=== PATIENT | female | born 1970 | race Caucasian/White ===

== ENCOUNTER → 2017-07-24 16:40 | Outpatient (CLI) | payer BC, SELFPAY ==
[2017-07-24 19:31] LABS: Thyroid Stimulating Hormone 2.41 uIU/ml (0.358-3.740)
== END ==
PROVIDERS: Family Provider Family Medicine; PCP Family Medicine; Visit Provider Obstetrics & Gynecology
DX: R68.82 Decreased libido (principal)
CPT/HCPCS: 84443

== ENCOUNTER → 2017-08-20 09:40 | Outpatient (POV) | payer BC, SELFPAY | PROVIDERS: Visit Provider Physician Assistant | DX: Z00.00 Encounter for general adult medical examination without abnormal findings (principal) ==

== ENCOUNTER → 2017-11-20 08:31 | Outpatient (CLI) | payer BC, SELFPAY ==
--- NOTE | 2017-11-20 08:34 | MM_ITS ---
MM Dig screening mamm BI w/CAD CAD Screening COMPARISON: Digital mammograms 11/16/2016 and 11/15/2015 INDICATION: There is no personal or family history of breast cancer. The patient had a melanoma removed from the left breast near the nipple. TECHNIQUE: Standard CC and MLO images were obtained. R2 CAD reviewed. FINDINGS: Scattered fiber glandular densities are seen in both breast. There is no suspicious lesion in either breast and no suspicious microcalcifications. IMPRESSION: Fibrofatty parenchyma no suspicious lesion seen BI-RADS Category: 2 Benign Finding(s) RECOMMENDED FOLLOW-UP: 1YR - 1 YEAR FOLLOW-UP (A letter has been sent to the patient regarding results of the study.)
== END ==
PROVIDERS: Family Provider Family Medicine; PCP Family Medicine; Visit Provider Obstetrics & Gynecology
DX: Z12.31 Encounter for screening mammogram for malignant neoplasm of breast (principal)
CPT/HCPCS: 77067

== ENCOUNTER → 2018-06-05 14:33 | Outpatient (CLI) | payer BC, SELFPAY ==
--- NOTE | 2018-06-05 14:36 | MR_ITS ---
MR cervical spine wo con, MR 3-d myelogram/MRCP HISTORY: LT arm pain. Numbness and tingling when waking. Unable to raise LT arm. [id number]. No trauma. No HX neck surgery. ITS.REASON: DISORDER OF NECK, CERVICAL RADICULOPATHY ORDERING PHYSICIAN: Aneesh Salas MD PATIENT AGE: 48 years Comparison: CT 09-15-16 TECHNIQUE: Standard multiplanar multiecho sequences are performed without contrast. 3-D MIP and myelographic images are also rendered and reviewed FINDINGS: There is normal alignment. The craniocervical junction has an unremarkable appearance. C2-C3, C3-C4, C4-C5 have an unremarkable appearance. C5-C6: There is minimal concentric bulging disc without impingement. C6-C7: Mild concentric bulging disc with a small broad-based disc protrusion which is slightly eccentric toward the left.. There is narrowing of the canal at 10 mm. No cord flattening or cord impingement. No foraminal narrowing evident. C7-T1 is unremarkable. No extruded herniated disc is evident. IMPRESSION: 1. Minimal bulging disc at C5-C6. 2. Mild concentric bulging disc at C6-C7 with a small broad-based central disc protrusion which is slightly eccentric toward the left.. There is narrowing of the canal at 10 mm. No cord flattening or cord impingement. No foraminal narrowing evident 3. No extruded herniated disc evident
== END ==
PROVIDERS: PCP Family Medicine; Visit Provider Family Medicine
DX: M53.82 Other specified dorsopathies, cervical region (principal); M54.12 Radiculopathy, cervical region
CPT/HCPCS: 72141; 76376

== ENCOUNTER → 2018-06-24 09:34 | Outpatient (POV) | payer BC, SELFPAY ==
[2018-06-24 09:43] VITALS: BP 166/95; PULSE 82; RESP 18; O2SAT 99
--- NOTE | 2018-06-24 11:18 | HMH.PMCON ---
Assessment and Plan (1) Degenerative disc disease Current visit: Yes Status: Chronic Qualifiers: Spinal region: mid-cervical Category: Medical (2) Cervical radiculopathy Current visit: Yes Status: Chronic Category: Medical Code(s): M54.12 - Radiculopathy, cervical region - Assessment and plan all Dx Assessment and Plan for all problems:: We will schedule a C5-C6 cervical epidural steroid injection for the patient. I believe it would be beneficial given her symptomology. Patient is not on any anticoagulation therapy. He is continuing her home stretching program. I will follow-up with her after the injection. This note was dictated using voice recognition software and may contain errors or omissions HPI - Data of Consult Consult date: 06/24/18 Requesting Physician: Debra Early APRN Primary Care Provider: Aneesh Salas MD - Consult Narrative Reason for consult: Neck pain History of present illness: Ms. Gonzalez is a 48 year old female who presents today for consultation in regards to her neck pain. Patient states lifting and moving increases her pain will a TENS unit, ice, heat helps decrease it. She is also now experiencing the left arm numbness and tingling. Patient has completed chiropractic therapy. Patient states that this did not help very much. She is also continuing a home stretching part regimen. Patient is currently on anti-inflammatories and gabapentin with not much relief. She rates her pain a 5 out of 10. She states the pain is causing it hard to be functional. Patient has an MRI showing degenerative changes in her C-spine. CC: Debra Early APRN [facility] History I have reviewed the patient's past medical history: Yes Other Surgeries: Yes: No Previous Surgery, Hysterectomy-Total Amputation: No Fractures: No - *Social History Smoking Status: Never smoker Tobacco Type: cigarettes # Packs/Day (cigarettes): 0 #Yrs smoked (if former smoker): 3 Alcohol Intake: never Alcohol Intake Frequency:: other Substance Use Type: denies use Occupational Status: employed Housing: house Household Members: spouse - Psychiatric History Expresses thoughts of harming self/others: None Suicide Plan Description: No Plan *Family Hx:: Cancer, Diabetes DECK ENGINEER history: No DECK ENGINEER history Review of Systems - Review of Systems ROS General: no recent weight change, no fever, no sleep disturbances Respiratory: no cough, no shortness of air, no recurring pulmonary infections Cardiovascular/Peripheral Vascular: No chest pain, No palpitations, no edema, no shortness of breath. Gastrointestinal: no incontinence, normal bowel movements reported Genitourinary: no incontinence Musculoskeletal: Neck pain, arm pain Psychiatric: normal mood/ affect Neurological: [denies weakness in extremities], [denies balance issues] Meds Home Medications Medication Instructions Recorded Confirmed Type estradiol 2 mg tablet 2 mg PO QDAY 07/03/17 History estradiol 2 mg tablet 2 mg PO ONCE #30 tab 11/12/17 Rx Allergies Allergy/AdvReac Type Severity Reaction Status Date / Time No Known Allergies Allergy Unverified 10/03/17 11:12 Objective Vital signs: Pulse Resp BP Pulse Ox 82 18 166/95 H 99 06/24/18 09:43 06/24/18 09:43 06/24/18 09:43 06/24/18 09:43 Narrative: Physical Exam General: Alert and oriented x3, no acute distress, pleasant and cooperative, [on room air] Lungs: Resps E/U, Symmetrical chest expansion, Eyes: PERRL Musculoskeletal: Flexion and extension of cervical spine somewhat guarded secondary to pain, deep tendon reflexes normal, strength in upper and lower extremities [5/5], normal gait noted Neurological: speech clear, waiter/waitress buffet equal, no gross sensory deficits Opioid Risk Tool - Opioid Risk Tool-Female Family hx alcohol abuse: N Family hx illegal drugs: N Family hx rx drug abuse: N Personal hx alcohol abuse: N Pers
--- NOTE | 2018-06-24 11:21 | P.CONS_ITS ---
Assessment and Plan (1) Degenerative disc disease Current visit: Yes Status: Chronic Qualifiers: Spinal region: mid-cervical Category: Medical (2) Cervical radiculopathy Current visit: Yes Status: Chronic Category: Medical Code(s): M54.12 - Radiculopathy, cervical region - Assessment and plan all Dx Assessment and Plan for all problems:: We will schedule a C5-C6 cervical epidural steroid injection for the patient. I believe it would be beneficial given her symptomology. Patient is not on any anticoagulation therapy. He is continuing her home stretching program. I will follow-up with her after the injection. This note was dictated using voice recognition software and may contain errors or omissions HPI - Data of Consult Consult date: 06/24/18 Requesting Physician: Debra Early APRN Primary Care Provider: Aneesh Salas MD - Consult Narrative Reason for consult: Neck pain History of present illness: Ms. Gonzalez is a 48 year old female who presents today for consultation in regards to her neck pain. Patient states lifting and moving increases her pain will a TENS unit, ice, heat helps decrease it. She is also now experiencing the left arm numbness and tingling. Patient has completed chiropractic therapy. Patient states that this did not help very much. She is also continuing a home stretching part regimen. Patient is currently on anti-inflammatories and gabapentin with not much relief. She rates her pain a 5 out of 10. She states the pain is causing it hard to be functional. Patient has an MRI showing degenerative changes in her C-spine. CC: eDbra Early APRN [facility] History I have reviewed the patient's past medical history: Yes Other Surgeries: Yes: No Previous Surgery, Hysterectomy-Total Amputation: No Fractures: No - *Social History Smoking Status: Never smoker Tobacco Type: cigarettes # Packs/Day (cigarettes): 0 #Yrs smoked (if former smoker): 3 Alcohol Intake: never Alcohol Intake Frequency:: other Substance Use Type: denies use Occupational Status: employed Housing: house Household Members: spouse - Psychiatric History Expresses thoughts of harming self/others: None Suicide Plan Description: No Plan *Family Hx:: Cancer, Diabetes LAND CHECKER history: No LAND CHECKER history Review of Systems - Review of Systems ROS General: no recent weight change, no fever, no sleep disturbances Respiratory: no cough, no shortness of air, no recurring pulmonary infections Cardiovascular/Peripheral Vascular: No chest pain, No palpitations, no edema, no shortness of breath. Gastrointestinal: no incontinence, normal bowel movements reported Genitourinary: no incontinence Musculoskeletal: Neck pain, arm pain Psychiatric: normal mood/ affect Neurological: [denies weakness in extremities], [denies balance issues] Meds Home Medications Medication Instructions Recorded Confirmed Type estradiol 2 mg tablet 2 mg PO QDAY 07/03/17 History estradiol 2 mg tablet 2 mg PO ONCE #30 tab 11/12/17 Rx Allergies Allergy/AdvReac Type Severity Reaction Status Date / Time No Known Allergies Allergy Unverified 10/03/17 11:12 Objective Vital signs: Pulse Resp BP Pulse Ox 82 18 166/95 H 99 06/24/18 09:43 06/24/18 09:4
== END ==
PROVIDERS: PCP Family Medicine; Visit Provider Clinical Nurse Specialist Family Health
DX: M50.10 Cervical disc disorder with radiculopathy, unspecified cervical region (principal)
CPT/HCPCS: 99202

== ENCOUNTER → 2018-07-15 09:20 | Outpatient (POV) | payer BC, SELFPAY ==
[2018-07-15 09:31] VITALS: BP 141/77; PULSE 81; RESP 18; O2SAT 98; BMI 31.1
--- NOTE | 2018-07-15 09:34 | HMH.PAINSOAP ---
[facility] Pain Management SOAP Note Subjective:: Patient is a pleasant 48-year-old white female who presents today for follow-up after cervical epidural steroid injection. Patient did not get any relief from her cervical epidural. Patient is having pain in her left shoulder only certain movements evoked pain. She still has strength in that extremity. Patient does have some radiation of pain into her upper arm. She rates her pain a 7 out of 10 today. Patient has not had any imaging of her shoulder we will send her for an x-ray today and potentially an MRI. I want to rule out nerve impingement within her shoulder. Patient's tried and failed physical therapy and is continuing home stretching exercises she is on anti-inflammatories. Patient is tried gabapentin with no relief. ROS General: no recent weight change, no fever, no sleep disturbances Respiratory: no cough, no shortness of air, no recurring pulmonary infections Cardiovascular/Peripheral Vascular: No chest pain, No palpitations, no edema, no shortness of breath. Gastrointestinal: no incontinence, normal bowel movements reported Genitourinary: no incontinence Musculoskeletal: Shoulder pain left arm pain Psychiatric: normal mood/ affect Neurological: [denies weakness in extremities], [denies balance issues] Objective:: Physical Exam General: Alert and oriented x3, no acute distress, pleasant and cooperative, [on room air] Lungs: Resps E/U, Symmetrical chest expansion, Eyes: PERRL Musculoskeletal: Flexion and extension of cervical spine somewhat guarded secondary to pain, deep tendon reflexes normal, strength in upper and lower extremities [5/5], slightly antalgic gait noted Neurological: speech clear, night shift manager equal, no gross sensory deficits Assessment:: Degenerative disc disease cervical spine, left shoulder pain, left arm pain Plan:: We will get an x-ray of the left shoulder and review it. Patient may need an MRI to determine pathology. I will follow-up with the patient after diagnostic imaging. This note was dictated using voice recognition software and may contain errors or omissions
--- NOTE | 2018-07-15 09:37 | P.CONS_ITS ---
[facility] Pain Management SOAP Note Subjective:: Patient is a pleasant 48-year-old white female who presents today for follow-up after cervical epidural steroid injection. Patient did not get any relief from her cervical epidural. Patient is having pain in her left shoulder only certain movements evoked pain. She still has strength in that extremity. Patient does have some radiation of pain into her upper arm. She rates her pain a 7 out of 10 today. Patient has not had any imaging of her shoulder we will send her for an x-ray today and potentially an MRI. I want to rule out nerve impingement within her shoulder. Patient's tried and failed physical therapy and is continuing home stretching exercises she is on anti-inflammatories. Patient is tried gabapentin with no relief. ROS General: no recent weight change, no fever, no sleep disturbances Respiratory: no cough, no shortness of air, no recurring pulmonary infections Cardiovascular/Peripheral Vascular: No chest pain, No palpitations, no edema, no shortness of breath. Gastrointestinal: no incontinence, normal bowel movements reported Genitourinary: no incontinence Musculoskeletal: Shoulder pain left arm pain Psychiatric: normal mood/ affect Neurological: [denies weakness in extremities], [denies balance issues] Objective:: Physical Exam General: Alert and oriented x3, no acute distress, pleasant and cooperative, [on room air] Lungs: Resps E/U, Symmetrical chest expansion, Eyes: PERRL Musculoskeletal: Flexion and extension of cervical spine somewhat guarded secondary to pain, deep tendon reflexes normal, strength in upper and lower extremities [5/5], slightly antalgic gait noted Neurological: speech clear, branch billing payroll clerk equal, no gross sensory deficits Assessment:: Degenerative disc disease cervical spine, left shoulder pain, left arm pain Plan:: We will get an x-ray of the left shoulder and review it. Patient may need an MRI to determine pathology. I will follow-up with the patient after diagnostic imaging. This note was dictated using voice recognition software and may contain errors or omissions
--- NOTE | 2018-07-15 09:43 | XR_ITS ---
XR shoulder LT min 2V HISTORY: ITS.REASON: LT SHOULDER PAIN ORDERING PHYSICIAN: Debra Early PATIENT AGE: 48 years Comparison: None FINDINGS: No fracture or dislocation. No lytic or blastic change. There is normal mineralization. The joint spaces are well-preserved. No significant degenerative/arthritic changes. No erosive changes evident. IMPRESSION: Negative, no acute finding
== END ==
PROVIDERS: PCP Family Medicine; Visit Provider Clinical Nurse Specialist Family Health
DX: M50.30 Other cervical disc degeneration, unspecified cervical region (principal); M25.512 Pain in left shoulder; M79.602 Pain in left arm
CPT/HCPCS: 73030; 99213

== ENCOUNTER → 2018-07-19 12:51 | Outpatient (CLI) | payer BC, SELFPAY ==
--- NOTE | 2018-07-19 12:54 | MR_ITS ---
MR shoulder LT wo con Ordering Physician: Debra Early Patient Age: 48 years: Female HISTORY: ITS..: LEFT SHOULDER PAIN Left shoulder and arm pain since January 2018. Limited range of motion with raising arm appearing behind back. No known injury. TECHNIQUE: Multiplanar multisequence imaging on 1.5 Yina MRI. COMPARISON :Left shoulder radiograph 07/15/2018 Also the negative appearing CT C-spine from August 2006 noted FINDINGS. Moderate Joint effusion at the shoulder joint. The glenohumeral joint the joint space appears to be maintained, with anterior & posterior labrum intact. Initially question possible slight signal undercutting of towards the inferior labrum but overall I believe this area is intact.... Superior labrum appears intact Joint fluid/fluid joint effusion extends along the biceps tendon sheath. The biceps tendon itself appears to demonstrate slight grade signal, increased signal & thinning as it passes just above the bicipital groove and over humeral head.. This appearance Suspect for biceps tendinopathy but may be exaggerated by magic angle artifact. Requires correlation.. Also note some minor nonspecific increased signal/edema towards anterior interval just anterior to this region possibly related to the joint effusion. There is a [id number] AC joint arthropathy, hypertrophy spurring most evident superiorly at AC joint. There is downward sloping of the acromion on coronal images.- With this the subacromial space narrows to 4.5 mm beneath the tip of the acromion. - Just beneath the tip of acromion there is mild thickening & slight increased signal within the supraspinatus tendon suggestive of supraspinatus tendinopathy. No full-thickness tear there could be some minor disruption of all along the distal surface but no full-thickness supraspinatus tear.. No significant increase fluid at subdeltoid subacromial bursa.. . infraspinatus tendon appears intact. Subscapularis tendon I overall intact with perhaps some scant increased signal in scant tendinopathy. -----IMPRESSION Supraspinatus tendinopathy.- Mild Thickening with increased signal at supraspinatus tendon, most notable towards bursal surface. Possible very minor irregularity/tear at the bursal surface, but no full-thickness rotator cuff tear.. Downward sloping at tip of acromion on coronal views-which slightly narrows the subacromial space.. This anatomy may contribute to impingement symptoms & the supraspinatus tendinopathy. Mild/moderate AC joint arthropathy,. Joint effusion. ( However no fluid at subdeltoid subacromial bursa-This speaks against full-thickness RCT as well) Suggestion of scant, Minimal subscapularis tendinopathy. Suspect biceps tendinopathy.. Suggestion of thinning & increased signal at the biceps tendon just above the bicipital groove. Correlation with symptoms required
== END ==
PROVIDERS: PCP Family Medicine; Visit Provider Clinical Nurse Specialist Family Health
DX: M25.512 Pain in left shoulder (principal)
CPT/HCPCS: 73221

== ENCOUNTER → 2018-07-23 09:03 | Outpatient (POV) | payer BC, SELFPAY ==
[2018-07-23 09:43] VITALS: BP 148/84; PULSE 75; RESP 18; O2SAT 98; BMI 31.1
--- NOTE | 2018-07-23 09:44 | HMH.PAINSOAP ---
[facility] Pain Management SOAP Note Subjective:: Patient is a pleasant 48-year-old white female who presents today to discuss her MRI of her left shoulder. Patient states her neck pain is virtually gone the most of her pain is in her left shoulder. She is having 7 out of 10 pain in that area. Patient has minor irregularities in the bursal surface along with a downward sloping acromion potentially contributing to impingement symptoms and supraspinatus tendinopathy. She also has moderate AC joint arthropathy. Patient states that the pain travels into her bicep at times. She has pain with range of motion. ROS General: no recent weight change, no fever, no sleep disturbances Respiratory: no cough, no shortness of air, no recurring pulmonary infections Cardiovascular/Peripheral Vascular: No chest pain, No palpitations, no edema, no shortness of breath. Gastrointestinal: no incontinence, normal bowel movements reported Genitourinary: no incontinence Musculoskeletal: Shoulder pain Psychiatric: normal mood/ affect Neurological: [denies weakness in extremities], [denies balance issues] Objective:: Physical Exam General: Alert and oriented x3, no acute distress, pleasant and cooperative, [on room air] Lungs: Resps E/U, Symmetrical chest expansion, [CTA bilateral] Eyes: PERRL Musculoskeletal: Range of motion left shoulder somewhat guarded secondary to pain, deep tendon reflexes normal, strength in upper and lower extremities [5/5], normal gait noted Neurological: speech clear, upholsterer inside equal, no gross sensory deficits Assessment:: AC arthropathy, bursitis, tendinitis left shoulder Plan:: We will schedule an AC joint injection along with a bursa injection of the left shoulder. I will follow-up with her after this. Dr. López has reviewed this note and agrees with this plan of care. This note was dictated using voice recognition software and may contain errors or omissions
--- NOTE | 2018-07-23 09:47 | P.CONS_ITS ---
[facility] Pain Management SOAP Note Subjective:: Patient is a pleasant 48-year-old white female who presents today to discuss her MRI of her left shoulder. Patient states her neck pain is virtually gone the most of her pain is in her left shoulder. She is having 7 out of 10 pain in that area. Patient has minor irregularities in the bursal surface along with a downward sloping acromion potentially contributing to impingement symptoms and supraspinatus tendinopathy. She also has moderate AC joint arthropathy. Patient states that the pain travels into her bicep at times. She has pain with range of motion. ROS General: no recent weight change, no fever, no sleep disturbances Respiratory: no cough, no shortness of air, no recurring pulmonary infections Cardiovascular/Peripheral Vascular: No chest pain, No palpitations, no edema, no shortness of breath. Gastrointestinal: no incontinence, normal bowel movements reported Genitourinary: no incontinence Musculoskeletal: Shoulder pain Psychiatric: normal mood/ affect Neurological: [denies weakness in extremities], [denies balance issues] Objective:: Physical Exam General: Alert and oriented x3, no acute distress, pleasant and cooperative, [on room air] Lungs: Resps E/U, Symmetrical chest expansion, [CTA bilateral] Eyes: PERRL Musculoskeletal: Range of motion left shoulder somewhat guarded secondary to pain, deep tendon reflexes normal, strength in upper and lower extremities [5/5], normal gait noted Neurological: speech clear, insole filler equal, no gross sensory deficits Assessment:: AC arthropathy, bursitis, tendinitis left shoulder Plan:: We will schedule an AC joint injection along with a bursa injection of the left shoulder. I will follow-up with her after this. Dr. López has reviewed this note and agrees with this plan of care. This note was dictated using voice recognition software and may contain errors or omissions
== END ==
PROVIDERS: PCP Family Medicine; Visit Provider Clinical Nurse Specialist Family Health
DX: M12.819 Other specific arthropathies, not elsewhere classified, unspecified shoulder (principal); M75.92 Shoulder lesion, unspecified, left shoulder
CPT/HCPCS: 99213

== ENCOUNTER → 2018-11-28 10:09 | Outpatient (CLI) | payer BC, SELFPAY ==
[2018-11-28 13:44] LABS: Thyroid Stimulating Hormone 2.66 uIU/ml (0.358-3.740)
== END ==
PROVIDERS: Visit Provider Obstetrics & Gynecology
DX: R53.83 Other fatigue (principal)
CPT/HCPCS: 36415; 84443

== ENCOUNTER → 2018-12-31 08:12 | Outpatient (CLI) | payer BC, SELFPAY ==
--- NOTE | 2018-12-31 08:15 | MM_ITS ---
MM Dig screening mamm BI w/CAD CAD Screening COMPARISON: Digital mammograms with CAD 11/18/2017 and 11/16/2016 INDICATION: There is no personal or family history of breast cancer. The patient has had a previous melanoma removed from the left breast near the nipple TECHNIQUE: Standard CC and MLO images were obtained. R2 CAD reviewed. FINDINGS: Scattered fibroglandular densities are seen in both breast. There is stable minimal scarring in the nipple left breast. There is no new or suspicious lesion in either breast and there are no suspicious microcalcifications. IMPRESSION: Fibrofatty parenchyma with no suspicious lesion seen BI-RADS Category: 2 Benign Finding(s) RECOMMENDED FOLLOW-UP: 1YR - 1 YEAR FOLLOW-UP (A letter has been sent to the patient regarding results of the study.)
== END ==
PROVIDERS: PCP Family Medicine; Visit Provider Obstetrics & Gynecology
DX: Z12.31 Encounter for screening mammogram for malignant neoplasm of breast (principal)
CPT/HCPCS: 77067

== ENCOUNTER → 2019-04-21 14:45 | Outpatient (CLI) | payer BC, SELFPAY | PROVIDERS: Visit Provider Obstetrics & Gynecology | DX: N76.4 Abscess of vulva (principal) | CPT/HCPCS: 87070; 87077; 87186; 87205 ==

== ENCOUNTER → 2020-01-06 07:57 | Outpatient (CLI) | payer BC, SELFPAY ==
--- NOTE | 2020-01-06 07:58 | MM_ITS ---
PROCEDURE: MM DIG SCREENING MAMM BI W/CAD DIGITAL BREAST TOMOSYNTHESIS INCLUDED Patient Age:49Y clinical indication: routine screening mammogram the patient takes control pills. no new complaints. melanoma resection scar left breast COMPARISON: [facility] DIG MAMM-SCREEN [facility] from 11/15/2015 [facility] DIG MAMM-SCREEN [facility] W/CAD from 11/16/2016 [facility] MM Dig screening mamm BI w/CAD from 11/20/2017 DIG MAMM-SCREEN [facility] from 12/31/2018 TECHNIQUE: Standard Cc And Mlo Images Were Obtained. R2 Cad Reviewed. Bilateral Digital Breast Tomosynthesis Included. Additional Mlo View Left Breast, Nipple Profile FINDINGS: A Moderate Breast Density.. No New Dominant Or Suspicious Mass But No Suspicious Calcifications. Cad Highlights No Significant Areas Of Concern Right Breast : No New Areas Of Significant Concer. A Small Asymmetric Area Of Density At Inferior Right Breast Mlo View Remain Stable Since At Least 2015 left Breast: No New Areas Of Significant Concern Bilateral Follow-up 1 Year Recommended IMPRESSION: STABLE BILATERAL MAMMOGRAM. STABLE MILD ASYMMETRY. WITH NO NEW AREAS SIGNIFICANT CONCERN. BILATERAL FOLLOW-UP 1 YEAR RECOMMENDED BI-RAD Category: 2 Benign Finding(s) FOLLOW-UP: 1YR 1 Year Follow-up (A letter has been sent to the patient regarding results of the study.) Dictated by: Shin Platt MD 01/09/2020 21:25 Electronically signed by Shin Platt MD in [place] 01/09/2020 21:25
== END ==
PROVIDERS: PCP Family Medicine; Visit Provider Obstetrics & Gynecology
DX: Z12.31 Encounter for screening mammogram for malignant neoplasm of breast (principal)
CPT/HCPCS: 77063; 77067

== ENCOUNTER → 2021-01-24 08:34 | Outpatient (CLI) | payer BC, SELFPAY ==
--- NOTE | 2021-01-24 08:35 | MM_ITS ---
PROCEDURE: MM DIG SCREENING MAMM BI W/CAD Digital Breast Tomosynthesis Included CLINICAL INDICATION: screening mammogram COMPARISON: MG DMSB DIGITAL MAMM-SCREEN BILATERAL from 09/27/2012 MG DMSB DIG MAMM-SCREEN MALKA from 11/15/2015 MG SCBI MM Dig screening mamm BI w/CAD from 11/20/2017 MG DIG MAMM-SCREEN MALKA from 12/31/2018 MG MM DIG SCREENING MAMM BI W/CAD from 01/06/2020 TECHNIQUE: Standard CC and MLO images and 3D Tomosynthesis was obtained. R2 CAD reviewed. FINDINGS: Average fibroglandular tissue. No malignant appearing mass or malignant-appearing microcalcification evident. Scattered areas of asymmetric fibroglandular tissue once again noted. There is a stable area of asymmetry in the inferior aspect of the right breast. IMPRESSION: Benign findings. No evidence of malignancy BI-RAD Category: 2 Benign Finding FOLLOW-UP: 1 YR 1 Year Follow-up (A letter has been sent to the patient regarding results of the study.) Dictated by: Danny Baird MD 01/27/2021 12:27 Danny Baird MD in [place] 01/27/2021 12:27
== END ==
PROVIDERS: PCP Family Medicine; Visit Provider Obstetrics & Gynecology
DX: Z12.31 Encounter for screening mammogram for malignant neoplasm of breast (principal)
CPT/HCPCS: 77063; 77067

== ENCOUNTER 2021-08-10 16:55 | Emergency (ER) | payer BC, SELFPAY ==
[2021-08-10 17:11] VITALS: BP 144/88; PULSE 71; RESP 19; TEMP 36.9; O2SAT 98; BMI 27.6
--- NOTE | 2021-08-10 17:29 | HMH.EDUTC ---
[facility] [place] Clinical Impression: Bronchitis Sinusitis Qualifiers: Sinusitis location: unspecified location Chronicity: unspecified Qualified Code(s): J32.9 - Chronic sinusitis, unspecified Disposition: Home, Self-Care Condition on Discharge: Good Instructions: Sinusitis, DI for Sinusitis, DI for Cough -- Adult Additional Instructions: *Monitor Temp, Over the counter Motrin or Tylenol as directed/as needed Tylenol every 4 hours and Motrin every 6 hours (as long as your family doctor has told you that you can take it) for fever or pain. and straight to ER if unable to lower temp less than 101.0 after medication given *Warm salt water gargles may help to soothe the throat *Throat Lozenges *Warm fluids like tea with honey may help to soothe the throat *Sleep elevated *Humidifier/Vaporizer Take medication as prescribed Return if needed Straight to ER if any life threatening symptoms Follow up IMMEDIATELY for new or worsening symptoms or no Noticeable improvement over the next 48-72 hours. 911 for difficulty breathing or swallowing Prescriptions: Amoxicillin/Potassium Clav [Augmentin 875-125 Tablet] 1 tab PO Q12H 10 Days #20 tab Transmission Status: Pending to [id number] [employer] Rx Fluconazole [Diflucan 150mg tab] 150 mg PO ONCE #1 tab Transmission Status: Pending to [id number] - [place] [facility] methylPREDNISolone [Medrol 4mg tab] 4 mg PO DIRECTED #21 tab Transmission Status: Pending to [id number] - [place] [facility] Referrals: Aneesh Salas MD [Primary Care Provider] - As needed Time of Disposition: 17:58 Medical Decision Making - Heriberto Inquiry Pt receiving controlled substance: No Heriberto was queried for this patient: No Vital Signs: 08/10/21 17:11 Temperature 98.5 F Temperature Source Oral Pulse Rate [Left] 71 Respiratory Rate 19 Blood Pressure [Right Arm] 144/88 H Blood Pressure Mean [Right Arm] 106 02 Sat by Pulse Oximetry 98 - Lab Data Lab results reviewed: Yes: I reviewed the patient's lab results. Orders (Tests/Meds): ED MEDICATIONS Discontinued Medications Generic Name Dose Route Start Last Admin Trade Name Freq PRN Reason Stop Dose Admin Ceftriaxone Sodium 1 gm 08/10/21 17:32 08/10/21 17:52 Ceftriaxone 1gm Vial IM 08/10/21 17:33 1 gm ONCE ONE Administration Lidocaine HCl 0 ml 08/10/21 17:32 08/10/21 17:52 Lidocaine 1% 5ml Pf Vial IM 08/10/21 17:33 2 ml ONCE ONE Administration Methylprednisolone Sodium Succinate 125 mg 08/10/21 17:32 08/10/21 17:52 Methylprednisolone Sod Succ 125mg Vial IM 08/10/21 17:33 125 mg ONCE ONE Administration [facility] [place] - General Stated complaint: RIGHT EAR Time Seen by Provider: 08/10/21 17:29 Mode of Arrival: Ambulatory Source of Information: Patient Limitations: No Limitations Description of Symptoms (Recalled from Triage Doc. by RN): pt c/o a sore throat, producutive cough and ear ache. x2 mo off and on HEENT Symptoms (Recalled from RN notes): Yes Resp Symptoms (Recalled from RN notes): Yes Skin Symptoms (Recalled from RN notes): No MS Symptoms (Recalled from RN notes): No Functional Status (Recalled from RN notes): wnl - History of Present Illness Provider Complaint: Patient states that she has been having sinus pain and pressure, pain in her right ear, sore throat and cough for over a month States that she has taken several different over the counter medications and nothing has helped State that today she was having sinus headache and feeling like the pressure behind her eyes was getting worse so she came in to get checked out - Related Data Previous Rx's Medication Instructions Recorded estradiol 2 mg tablet 2 mg PO DAILY #30 tab 08/26/20 Amoxicillin/Potassium Clav 1 tab PO Q12H 10 Days #20 tab 08/10/21 [Augmentin 875-125 Tablet] Fluconazole [Diflucan 150mg tab] 150 mg PO ONCE #1 tab 08/10/21 methylPREDNISolone [Medrol 4mg 4 mg PO DIRECTED #21 tab 02
[2021-08-10 18:33] VITALS: BP 144/88; PULSE 71; RESP 19; TEMP 36.9
== END 2021-08-10 18:35 | disposition home or self-care (01) ==
PROVIDERS: Emergency Provider Nurse Practitioner; PCP Family Medicine
DX: J20.9 Acute bronchitis, unspecified (principal); J32.9 Chronic sinusitis, unspecified
CPT/HCPCS: 96372; 99202; G0463; J0696

== ENCOUNTER 2022-01-20 13:16 | Emergency (ER) | payer BC, SELFPAY ==
[2022-01-20 13:17] VITALS: BP 138/85; PULSE 85; RESP 19; TEMP 36.9; O2SAT 98; BMI 29.2
--- NOTE | 2022-01-20 13:41 | HMH.EDUTC ---
[facility] [place] Clinical Impression: Bronchitis Sinusitis Qualifiers: Sinusitis location: unspecified location Chronicity: unspecified Qualified Code(s): J32.9 - Chronic sinusitis, unspecified Disposition: Home, Self-Care Condition on Discharge: Good Instructions: Sinusitis, DI for Sinusitis Additional Instructions: ? Start antibiotic today. Be sure to complete entire prescription even if feeling better ? Monitor temp. Tylenol every 4 hours as needed and / or ibuprofen every 6 hours as needed ( As long as your primary care physician has told you that it ok to take both. For fever/aches/pains ER if no less than 101 despite Tylenol or Motrin ? Humidifier/vaporizer or hot steamy shower ? Inhaler every 4-6 hours as needed like we discussed. If unsure how to use it, ask pharmacist to demonstrate how. Should help open airways and improve cough, wheezing, and shortness of breath *Start steroid tomorrow. Helps with inflammation therefore, cough and wheezing. Follow directions on the package. Reviewed side effects. Patient reports taking them before. Follow up IMMEDIATELY for new or worsening of symptoms OR no noticeable improvement over the next 48-72 hours. 911 immediately for any life threatening symptoms such as chest pain or difficulty breathing Prescriptions: Albuterol Sulfate [Proventil-HFA 90mcg/puff Inh] 1 - 2 puffs IH Q6HP PRN #1 each PRN Reason: Shortness Of Breath Transmission Status: Received by [facility] [place] [facility] Benzonatate [Benzonatate 100mg cap] 100 mg PO Q8HP PRN #15 cap PRN Reason: Cough Transmission Status: Pending to [facility] [place] [facility] guaiFENesin [Mucinex 600mg tablet] 1 - 2 tab PO Q12HP PRN #20 tab PRN Reason: Congestion Transmission Status: Received by [facility] [place] [facility] Amoxicillin/Potassium Clav [Amox-Clav 875-125 mg Tablet] 1 tab PO BID #20 tab Transmission Status: Received by [facility] [place] [facility] Fluconazole [Diflucan 150mg tab] 150 mg PO ONCE #1 tab Transmission Status: Pending to [facility] [place] [facility] methylPREDNISolone [Medrol 4mg tab] 4 mg PO DIRECTED #21 tab Transmission Status: Received by [id number] - [place] [facility] Referrals: Aneesh Salas MD [Primary Care Provider] - As needed Time of Disposition: 14:18 Medical Decision Making - Heriberto Inquiry Pt receiving controlled substance: No Heriberto was queried for this patient: No Vital Signs: 01/20/22 13:17 01/20/22 14:09 Temperature 98.5 F 98.5 F Temperature Source Oral Pulse Rate 85 Pulse Rate [Left Radial] 85 Respiratory Rate 19 19 Blood Pressure 138/85 Blood Pressure [Right Arm] 138/85 Blood Pressure Mean [Right Arm] 102 Blood Pressure Source [Right Arm] Automatic Cuff Blood Pressure Position [Right Arm] Sitting 02 Sat by Pulse Oximetry 98 Oxygen Delivery Method Room Air Orders (Tests/Meds): ED MEDICATIONS Discontinued Medications Generic Name Dose Route Start Last Admin Trade Name Freq PRN Reason Stop Dose Admin Ceftriaxone Sodium 1 gm 01/20/22 13:46 01/20/22 14:00 Ceftriaxone 1gm Vial IM 01/20/22 13:47 1 gm ONCE ONE Administration Lidocaine HCl 0 ml 01/20/22 13:46 01/20/22 14:01 Lidocaine 1% 5ml Pf Vial IM 01/20/22 13:47 2.1 ml ONCE ONE Administration Methylprednisolone Sodium Succinate 125 mg 01/20/22 13:46 01/20/22 14:00 Methylprednisolone Sod Succ 125mg Vial IM 01/20/22 13:47 125 mg ONCE ONE [place] [facility] [place] - General Stated complaint: head congestion, sore throat Time Seen by Provider: 01/20/22 13:41 Mode of Arrival: Ambulatory Source of Information: Patient Limitations: No Limitations Description of Symptoms (Recalled from Triage Doc. by RN): c/o sore throat, congestion, coughing, sinus pain and pressure for 2 weeks HEENT Symptoms (Recalled from RN notes): Yes Resp Symptoms (Recalled from RN notes): Yes (cough) Skin Symptoms (Recalled from RN notes)
[2022-01-20 14:09] VITALS: BP 138/85; PULSE 85; RESP 19; TEMP 36.9; O2SAT 98
== END 2022-01-20 14:21 | disposition home or self-care (01) ==
PROVIDERS: Emergency Provider Nurse Practitioner; PCP Family Medicine
DX: J40 Bronchitis, not specified as acute or chronic (principal); J30.2 Other seasonal allergic rhinitis; J32.9 Chronic sinusitis, unspecified; N80.9 Endometriosis, unspecified; Z79.51 Long term (current) use of inhaled steroids; Z79.52 Long term (current) use of systemic steroids; Z79.899 Other long term (current) drug therapy; Z79.890 Hormone replacement therapy; Z85.828 Personal history of other malignant neoplasm of skin; Z87.891 Personal history of nicotine dependence; Z80.9 Family history of malignant neoplasm, unspecified; Z83.3 Family history of diabetes mellitus
CPT/HCPCS: 96372; 99213; G0463; J0696

== ENCOUNTER → 2022-01-27 07:49 | Outpatient (CLI) | payer BC, SELFPAY ==
--- NOTE | 2022-01-27 07:49 | MM_ITS ---
PROCEDURE INFORMATION: Exam: MG Bilateral Screening 3D Mammography Exam date and time: 01/27/2022 7:55 AM Age: 51 years old Clinical indication: Screening mammogram. TECHNIQUE: Imaging protocol: Bilateral Screening tomosynthesis and 2D mammography including computer-aided detection (CAD) when performed. COMPARISON: 1. MG MM DIG SCREENING MAMM BI W/CAD 01/24/2021 9:00 AM 2. MG MM DIG SCREENING MAMM BI W/CAD 01/06/2020 8:06 AM 3. MG DIG MAMM-SCREEN MALKA 12/31/2018 8:34 AM 4. MG SCBI MM Dig screening mamm BI w/CAD 11/20/2017 8:49 AM FINDINGS: MAMMOGRAPHY: Breast composition: There are scattered areas of fibroglandular density. Mass: None. Architectural distortion: No new or suspicious architectural distortion. Calcifications: No new or suspicious calcifications are present Asymmetric density: No new or suspicious asymmetric density is present Skin thickening: None. Axillary adenopathy: None. IMPRESSION: No mammographic evidence of malignancy. Recommend annual screening mammography unless otherwise clinically indicated. ASSESSMENT: BI-RADS category 1: Negative
== END ==
PROVIDERS: PCP Family Medicine; Visit Provider Obstetrics & Gynecology
DX: Z12.31 Encounter for screening mammogram for malignant neoplasm of breast (principal)
CPT/HCPCS: 77063; 77067

== ENCOUNTER 2022-03-17 09:59 | Emergency (ER) | payer BC, SELFPAY ==
[2022-03-17 11:14] VITALS: BP 141/82; PULSE 98; RESP 19; TEMP 37.2; O2SAT 98; BMI 28.5
--- NOTE | 2022-03-17 11:34 | EXP.UTC ---
Discharge Plan Disposition Patient Disposition: Home, Self-Care Condition: Good Prescriptions Prescriptions: New methylprednisolone [Medrol (Celestine)] 4 mg tablets,dose pack See Rx Instructions .Route .COMPLEX 6 Days Qty: 21 0RF Rx Instructions: taper pack; amoxicillin-pot clavulanate 875-125 mg Tablet 1 tab PO Q12H Qty: 20 0RF fluconazole [Diflucan] 150 mg tablet 150 mg PO Q3D Qty: 2 0RF Rx Instructions: Take one tablet now wait 72 hours then repeat if still having symptoms benzonatate 100 mg capsule 100 mg PO TID PRN (Reason: cough) Qty: 30 0RF No Action estradiol 2 mg tablet 2 mg PO DAILY Qty: 30 11RF methylprednisolone 4 MG tablet 4 mg PO DIRECTED Qty: 21 0RF Rx Instructions: Take as directed on package instructions Start on 01/21/22 albuterol sulfate 200 PUFF HFA aerosol inhaler 1 - 2 puffs IH Q6HP PRN (Reason: Shortness Of Breath) Qty: 1 0RF amoxicillin-pot clavulanate 1 EACH tablet 1 tab PO BID Qty: 20 0RF guaifenesin 600 MG tablet extended release 12hr 1 - 2 tab PO Q12HP PRN (Reason: Congestion) Qty: 20 0RF Rx Instructions: make sure to drink plenty of water with this medication fluconazole 150 MG tablet 150 mg PO ONCE Qty: 1 0RF benzonatate 100 MG capsule 100 mg PO Q8HP PRN (Reason: Cough) Qty: 15 0RF Referrals Follow up/Referrals: Aneesh Salas MD [Primary Care Provider] - See instructions Activity Restrictions/Add. Instructions Additional Instructions/Restrictions: *Monitor Temp, Over the counter Motrin or Tylenol as directed/as needed Tylenol every 4 hours and Motrin every 6 hours (as long as your family doctor has told you that you can take it) for fever or pain. and straight to ER if unable to lower temp less than 101.0 after medication given *Warm salt water gargles may help to soothe the throat *Throat Lozenges? *Warm fluids like tea with honey may help to soothe the throat? *Sleep elevated *Humidifier/Vaporizer Your throat swab was sent for culture. Those results are typically sent to your primary care. Be sure to follow up in 2-3 days with your family doctor/primary care physician if no improvement so they can review those result and treat if necessary. If you don?t have a primary care doctor, I recommend you get one but in the mean time, you will have to return to a walk in clinic Follow up IMMEDIATELY for new or worsening symptoms or no Noticeable improvement over the next 48-72 hours. 911 for difficulty breathing or swallowing Start oral antibiotics tomorrow You were tested for today for COVID19 your test result should be back in the next 24-48 hours, you may check your results on the [facility] Make sure to take your Vitamins Vit. C Vit D and Zinc if you can take them Clinical Impressions Clinical Impression: Sinusitis Stand Alone Forms Stand Alone Forms: Work/School Release Instructions Patient Instructions: Sinusitis, DI for Sinusitis Discharge ED Provider: Judith Ring [facility] [place] HPI General Stated complaint: sore throat, h/a, congestion, cough Mode of Arrival: Ambulatory Source of Information: Patient Limitations: No Limitations Time Seen by Provider: 03/17/22 11:34 Description of Symptoms (Recalled from Triage Doc. by RN): C/O PETER, head congestion, cough, sore throat, chest congestion x4 days HEENT Symptoms (Recalled from RN notes): Yes (EPTER, head congestion) Resp Symptoms (Recalled from RN notes): Yes (cough, chest congestion) Skin Symptoms (Recalled from RN notes): No MS Symptoms (Recalled from RN notes): No Functional Status (Recalled from RN notes): n/a History of Present Illness Provider Complaint: Patient states that she has been having sinus congestion and pressure, sore throat, headache and feels like it is trying to move into her chest States that she was worried and wanted to get checked before it got real bad States that this morning she had a fever so
[2022-03-17 11:47] LABS: UTC Strep Screen (Rapid) Negative (Negative)
[2022-03-17 12:36] VITALS: BP 141/82; PULSE 98; RESP 19; TEMP 37.2; O2SAT 98
== END 2022-03-17 12:38 | disposition home or self-care (01) ==
PROVIDERS: Emergency Provider Nurse Practitioner; PCP Family Medicine
DX: J32.9 Chronic sinusitis, unspecified (principal); Z87.891 Personal history of nicotine dependence; Z20.822 Contact with and (suspected) exposure to COVID-19
CPT/HCPCS: 87880; 96372; 99212; C9803; G0463; J0696; U0003; U0005

== ENCOUNTER 2022-10-06 16:59 | Emergency (ER) | payer BC, SELFPAY ==
[2022-10-06 17:30] VITALS: BP 148/74; PULSE 89; RESP 16; TEMP 37.3; O2SAT 97; BMI 34.3
--- NOTE | 2022-10-06 18:10 | EXP.UTC ---
Discharge Plan Disposition Patient Disposition: Home, Self-Care Condition: Good Prescriptions Prescriptions: New azithromycin 250 mg tablet See Rx Instructions .ROUTE .COMPLEX Qty: 6 0RF Rx Instructions: For 250 mg dose pack: take 500 mg today (day 1), then 250 mg for 4 days (days 2-5) promethazine-DM 6.25-15 mg/5 mL syrup 5 ml PO Q6H PRN (Reason: cough) Qty: 118 0RF No Action azithromycin 250 mg tablet 250 mg PO DAILY 7 Days Qty: 7 0RF fluconazole 150 mg tablet 150 mg PO Q3D Qty: 2 0RF Rx Instructions: may repeat second dose 72 hrs after first dose if symptoms persist metronidazole 500 mg tablet 500 mg PO BID 7 Days Qty: 14 0RF estradiol 2 mg tablet 2 mg PO DAILY Qty: 30 11RF Referrals Follow up/Referrals: Aneesh Salas MD [Primary Care Provider] - See instructions Clinical Impressions Clinical Impression: Acute lower respiratory infection Instructions Patient Instructions: DI for Acute Bronchitis, DI for Viral Pharyngitis Discharge ED Provider: Alma Delia Castro [facility] [place] General Stated complaint: SOA sore throat, cough Mode of Arrival: Ambulatory Source of Information: Patient Limitations: No Limitations Time Seen by Provider: 10/06/22 18:09 Description of Symptoms (Recalled from Triage Doc. by RN): PATIENT C/O COUGH, SORE THROAT, CHEST CONGESTION, HEADACHE AND WHEEZING HEENT Symptoms (Recalled from RN notes): Yes Resp Symptoms (Recalled from RN notes): Yes Skin Symptoms (Recalled from RN notes): No MS Symptoms (Recalled from RN notes): No Functional Status (Recalled from RN notes): WNL History of Present Illness Provider Complaint: Pt states that she has been sick for the last 3 Related Data Previous Rx's Medication Instructions Recorded estradiol 2 mg tablet 2 mg PO DAILY #30 tabs 12/22/21 azithromycin 250 mg tablet 250 mg PO DAILY 7 days #7 tabs 08/17/22 fluconazole 150 mg tablet 150 mg PO Q3D 2 doses #2 tabs 08/17/22 metronidazole 500 mg tablet 500 mg PO BID 7 days #14 tabs 08/17/22 azithromycin 250 mg tablet See Rx Instructions PO .COMPLEX #6 10/06/22 tabs promethazine-DM 6.25 mg-15 mg/5 mL 5 ml PO Q6H PRN cough #118 mL 10/06/22 oral syrup Allergies Allergy/AdvReac Type Severity Reaction Status Date / Time No Known Allergies Allergy Verified 08/14/22 13:43 Worker's Comp Is this a Worker's Comp case?: No [facility] Disclaimer: The information contained in this section may have been updated after the patient was seen, as this information can be updated by other users. Surgical History (Updated 08/14/22 @ 13:50 by BRIANNA Mendes) History of hysterectomy with bilateral oophorectomy Family History (Updated 08/14/22 @ 13:50 by BRIANNA Mendes) Other No significant family history Social History (Updated 08/14/22 @ 13:51 by BRIANNA Mendes) Smoking Status: Current some day smoker tobacco type: cigarettes packs per day: 1 second hand exposure: No alcohol intake: current counseling provided: none substance use type: denies use current occupational status: employed Travel in the last 8 weeks: None household members: spouse housing: house caffeine: No ROS Obtained: Yes All systems reviewed & no additional complaints except as documented Constitutional Constitutional: Reports system reviewed and no additional complaints, except as documented, Reports headache(s) and Reports malaise Eyes Eyes: Reports system reviewed and no additional complaints, except as documented ENT Ears, Nose, Mouth, and Throat: Reports as per HPI, Reports headache(s), Reports nasal congestion, Reports nasal discharge, Reports sinus pressure and Reports sore throat Cardiovascular Cardiovascular: Reports system reviewed and no additional complaints, except as documented Respiratory Respiratory: Reports non-productive cough and Reports wheezing Gastrointestinal Gastrointestingal: Reports system reviewed and no additional
[2022-10-06 18:26] VITALS: BP 148/74; PULSE 89; RESP 16; TEMP 37.3; O2SAT 97
[2022-10-06 20:03] LABS: UTC Strep Screen (Rapid) Negative (Negative)
== END 2022-10-06 18:32 | disposition home or self-care (01) ==
PROVIDERS: Emergency Provider Nurse Practitioner Family; PCP Family Medicine
DX: J20.9 Acute bronchitis, unspecified (principal); F17.210 Nicotine dependence, cigarettes, uncomplicated
CPT/HCPCS: 96372; 87880; 99212; 99214; G0463

== ENCOUNTER → 2023-02-27 07:57 | Outpatient (CLI) | payer BC, SELFPAY ==
--- NOTE | 2023-02-27 07:57 | MM_ITS ---
PROCEDURE INFORMATION: Exam: MG Bilateral Screening 3D Mammography Exam date and time: 02/27/2023 7:48 AM Age: 52 years old Clinical indication: Screening examination; No personal or family history of breast cancer TECHNIQUE: Imaging protocol: Bilateral Screening tomosynthesis and 2D mammography including computer-aided detection (CAD) when performed. COMPARISON: 1. MG MM DIG SCREENING MAMM BI W/CAD 01/27/2022 7:55 AM 2. MG MM DIG SCREENING MAMM BI W/CAD 01/24/2021 9:00 AM FINDINGS: MAMMOGRAPHY: Breast composition: There are scattered areas of fibroglandular density. Mass: Questionable 0.6 cm mass in the anterior right retroareolar region Architectural distortion: None. Calcifications: No suspicious calcifications. Asymmetric density: None. Skin thickening: None. Axillary adenopathy: None. IMPRESSION: Patient to be recalled for spot compression views of the right breast in the CC and MLO projections, a full 90 degree lateral view, and right breast ultrasound for further evaluation of a right breast mass. ASSESSMENT: BI-RADS Category 0: Incomplete- Need Additional Imaging Evaluation and/or Prior Mammograms for Comparison
== END ==
PROVIDERS: PCP Family Medicine; Visit Provider Obstetrics & Gynecology
DX: Z12.31 Encounter for screening mammogram for malignant neoplasm of breast (principal)
CPT/HCPCS: 77063; 77067

== ENCOUNTER → 2023-03-07 14:37 | Outpatient (CLI) | payer BC, SELFPAY ==
--- NOTE | 2023-03-07 14:37 | US_ITS ---
PROCEDURE INFORMATION: Exam: US Right Breast, Complete MG Right Diagnostic Breast Tomosynthesis Exam date and time: 03/07/2023 2:38 PM Age: 52 years old Clinical indication: Callback for additional assessment of questionable 0.6 cm mass in the anterior retroareolar right breast identified on screening mammogram 02/27/2023 TECHNIQUE: Imaging protocol: Complete ultrasound of all four quadrants of the right breast and the retroareolar regions, including ultrasound of the axilla when performed. Right Diagnostic tomosynthesis and 2D mammography including computer-aided detection (CAD) when performed. Unilateral or bilateral exam. COMPARISON: 1. MG MM DIG SCREENING MAMM BI W/CAD 02/27/2023 7:48 AM 2. MG MM DIG SCREENING MAMM BI W/CAD 01/27/2022 7:55 AM 3. MG MM DIG SCREENING MAMM BI W/CAD 01/24/2021 9:00 AM 4. MG MM DIG SCREENING MAMM BI W/CAD 01/06/2020 8:06 AM FINDINGS: MAMMOGRAPHY: There is a persistent 0.6 cm asymmetric density only persistent on MLO spot compression view and lateral view along the inferior aspect of the right anterior breast approximately 2 cm from the nipple. No associated architectural distortion or suspicious calcifications are present. When compared with prior mammograms, particularly MLO from 01/06/2020 and 01/24/2021, this was probably present previously but seen to better advantage currently due to altered technique ULTRASOUND: In the region of mammographic interest right 6 o'clock breast 2 cm from the nipple, there is a horizontal circumscribed hypoechoic 0.6 x 0.5 x 0.2 cm cyst or focally dilated duct. No suspicious architectural distortion or shadowing is present. IMPRESSION: No mammographic or sonographic evidence of malignancy. Recommend annual screening mammography unless otherwise clinically indicated. ASSESSMENT: BI-RADS category 2: Benign
== END ==
PROVIDERS: PCP Family Medicine; Visit Provider Obstetrics & Gynecology
DX: R92.8 Other abnormal and inconclusive findings on diagnostic imaging of breast (principal); N63.10 Unspecified lump in the right breast, unspecified quadrant
CPT/HCPCS: 76641; 77061; 77065; G0279

== ENCOUNTER 2023-12-02 09:46 | Emergency (ER) | payer BC, SELFPAY ==
[2023-12-02 10:15] VITALS: BP 170/82; PULSE 72; RESP 18; TEMP 37.2; O2SAT 98; BMI 32.9
--- NOTE | 2023-12-02 10:25 | EXP.UTC ---
Discharge Plan Disposition Patient Disposition: Home, Self-Care Condition: Good Prescriptions Prescriptions: New promethazine-DM 6.25-15 mg/5 mL Syrup 5 ml PO Q6H PRN (Reason: Cough) Qty: 240 0RF fluconazole 150 mg tablet 150 mg PO ONCE Qty: 1 3RF methylprednisolone 4 mg Tablets,Dose Pack 4 mg PO DIRECTED 6 Days Qty: 21 0RF Rx Instructions: Take 1 pack as directed for 6 days amoxicillin-pot clavulanate 875-125 mg Tablet 1 tab PO Q12H Qty: 20 0RF albuterol sulfate [Ventolin HFA] 90 mcg/actuation HFA aerosol inhaler 2 puff inhalation Q6H PRN (Reason: shortness of breath or wheezing) Qty: 6.7 0RF No Action estradiol 0.01 % (0.1 mg/gram) cream 1 appful vaginal HS Qty: 42.5 1RF Rx Instructions: for 14 days zrcknnogpatbkrr-nckwlpvgd-QR [Bromfed DM] 2-30-10 mg/5 mL syrup 10 ml PO Q4-6H PRN (Reason: cough) Qty: 473 0RF estradiol 2 mg tablet 2 mg PO DAILY Qty: 30 11RF Referrals Follow up/Referrals: Aneesh Salas MD [Primary Care Provider] - See instructions Activity Restrictions/Add. Instructions Additional Instructions/Restrictions: Drink plenty of fluids. Take tylenol or ibuprofen for pain or fever. Take the medications as directed. Follow up with your regular doctor. GO TO THE ER FOR ANY WORSENING SYMPTOMS Don't start the oral steroids until tomorrow since you had the steroid shot here today. The cough medication (promethazine dm) will make you drowsy, so don't drive or operate heavy machinery after taking it. Clinical Impressions Clinical Impression: Acute bronchitis, Sinusitis Instructions Patient Instructions: Sinusitis, DI for Sinusitis Discharge ED Provider: Zachary Waite [facility] [place] H[place] General Stated complaint: soa congestion cough fever 101 Time Seen by Provider: 12/02/23 10:25 Related Data Previous Rx's Medication Instructions Recorded estradiol 0.01% (0.1 mg/gram) 1 appful vaginal HS #42.5 grams 03/13/23 vaginal cream estradiol 2 mg tablet 2 mg PO DAILY #30 tabs 03/15/23 ghjsmivyyadzzdv-obyabomkikkksor-MC 10 ml PO Q4-6H PRN cough #473 mL 11/28/23 2 mg-30 mg-10 mg/5 mL oral syrup (Bromfed DM) albuterol sulfate 90 mcg/actuation 2 puff inhalation Q6H PRN 12/02/23 aerosol inhaler (Ventolin HFA) shortness of breath or wheezing #6.7 grams amoxicillin 875 mg-potassium 1 tab PO Q12H #20 tabs 12/02/23 clavulanate 125 mg tablet fluconazole 150 mg tablet 150 mg PO ONCE 1 dose #1 tab 12/02/23 methylprednisolone 4 mg tablets in 4 mg PO DIRECTED 6 days #21 tabs 12/02/23 a dose pack promethazine-DM 6.25 mg-15 mg/5 mL 5 ml PO Q6H PRN Cough #240 mL 12/02/23 oral syrup Allergies Allergy/AdvReac Type Severity Reaction Status Date / Time No Known Allergies Allergy Verified 12/02/23 10:34 [facility] Disclaimer: The information contained in this section may have been updated after the patient was seen, as this information can be updated by other users. Medical History Vaginal discharge Low libido Decreased libido Vasomotor symptoms due to menopause Cervical radiculopathy Degenerative disc disease Surgical History History of hysterectomy with bilateral oophorectomy Family History Other No significant family history Social History Smoking Status: Current some day smoker tobacco type: cigarettes packs per day: 1 second hand exposure: No alcohol intake: current alcohol intake frequency: holidays/special occasions only counseling provided: none substance use type: denies use current occupational status: employed Travel in the last 8 weeks: None household members: spouse housing: house caffeine: No ROS Obtained: Yes All systems reviewed & no additional complaints except as documented Constitutional Constitutional: Reports poor appetite Eyes Eyes: Reports system reviewed and no additional complaints, except as documented ENT Ears, Nose, Mouth, and Throat: Reports as per HPI Cardiovascular Cardiovascular: Reports system reviewed and no additional complaints, except as documented and Denies chest pain Respiratory Respiratory: Denies shortness of breath, Denies chest congestion, Reports cough, Denies stridor and Denies wheezing Gastrointestinal Gastrointestingal: Reports system reviewed and no additional complaints, except as documented; Denies abdominal pain, diarrhea or vomiting Musculoskeletal Musculoskeletal: Reports system reviewed and no additional complaints, except as documented and Denies arthralgias Integumentary/Breasts Skin/Breast: Reports system reviewed and no additional complaints, except as documented and Denies rash Neurologic Neurologic: Denies paresthesias Allergic/Immunologic Allergic/Immunologic: Denies wheezing Physical Exam General General appearance: alert and in no apparent distress Eye Eye exam: Present normal appearance, PERRL and EOMI ENT ENT exam: Present mucous membranes moist and normal external ear exam Expanded ENT Exam External ear exam: Present normal external inspection TM/Canal exam: Bilateral TM: erythema and bulging Nose exam: Absent sinus tenderness Nasal speculum exam: Bilateral: normal Mouth exam: Present normal external inspection; Absent drooling Teeth exam: Present normal inspection Throat exam: Present tonsillar erythema and tonsillomegaly Neck Neck exam: Present normal inspection, full ROM and trachea midline; Absent tenderness, lymphadenopathy or thyromegaly Chest Chest inspection: Present normal inspection and symmetric chest wall rise; Absent tenderness or rash Respiratory Respiratory exam: Present normal lung sounds bilaterally; Absent respiratory distress, wheezes, stridor or accessory muscle use Cardiovascular Cardiovascular exam: Present regular rate, normal rhythm and normal heart sounds Abdominal Exam Abdominal exam: Present soft; Absent distention, tenderness, guarding, rebound or rigidity Extremities Exam Extremities exam: Present normal inspection, full ROM and normal capillary refill; Absent tenderness or calf tenderness Back Exam Back exam: Present normal inspection and full ROM; Absent tenderness Neurological Exam Neurological exam: Present alert and oriented X3 Psychiatric Psychiatric exam: Present normal affect and normal mood Skin Skin exam: Present warm, dry, intact and normal color Lymphatic Lymphatic Findings: no adenopathy Medical Decision Making Medical Records Medical records reviewed: No I reviewed the patient's medical records. Heriberto Inquiry Pt receiving controlled substance: No
[2023-12-02] MEDS: DEXAMETHASONE 4MG/ML 1ML VIAL 8 MG IM (10:44)
[2023-12-02] MEDS: cefTRIAXone 1GM VIAL 1 GM IM (10:44)
[2023-12-02] MEDS: LIDOCAINE 1% 5ML PF VIAL IM (10:45)
[2023-12-02 11:16] VITALS: BP 170/82; PULSE 72; RESP 18; TEMP 37.2; O2SAT 98
== END 2023-12-02 11:16 | disposition home or self-care (01) ==
PROVIDERS: Emergency Provider Nurse Practitioner Family; PCP Family Medicine
DX: J20.9 Acute bronchitis, unspecified (principal); J01.90 Acute sinusitis, unspecified; R06.02 Shortness of breath; R50.9 Fever, unspecified; R09.81 Nasal congestion; R05.9 Cough, unspecified
CPT/HCPCS: 96372; 99212; 99214; G0463; J0696

== ENCOUNTER 2024-05-20 15:49 | Outpatient (CLI) | payer BC, SELFPAY ==
--- NOTE | 2024-05-20 15:50 | MM_ITS ---
PROCEDURE INFORMATION: Exam: MG Bilateral Screening 3D Mammography Exam date and time: 05/20/2024 3:43 PM Age: 54 years old Clinical indication: Screening mammogram TECHNIQUE: Imaging protocol: Bilateral Screening tomosynthesis and 2D mammography including computer-aided detection (CAD) when performed. COMPARISON: 1. MG MM DIG MAMM DX UNILAT RT CAD 03/07/2023 2:38 PM 2. MG MM DIG SCREENING MAMM BI W/CAD 02/27/2023 7:48 AM 3. MG MM DIG SCREENING MAMM BI W/CAD 01/27/2022 7:55 AM 4. MG MM DIG SCREENING MAMM BI W/CAD 01/24/2021 9:00 AM 5. 12/31/2018 FINDINGS: MAMMOGRAPHY: Breast composition: There are scattered areas of fibroglandular density. Mass: None. Architectural distortion: No new or suspicious architectural distortion. Calcifications: No new or suspicious calcifications are present Asymmetric density: No new or suspicious asymmetric density is present Skin thickening: None. Axillary adenopathy: None. IMPRESSION: No mammographic evidence of malignancy. Recommend annual screening mammography unless otherwise clinically indicated. ASSESSMENT: BI-RADS category 1: Negative.
== END 2024-05-20 23:59 | disposition home or self-care (01) ==
LOC: RAD 15:50
PROVIDERS: PCP Family Medicine; Visit Provider Obstetrics & Gynecology
DX: Z12.31 Encounter for screening mammogram for malignant neoplasm of breast (principal)
CPT/HCPCS: 77063; 77067

== ENCOUNTER 2024-07-16 14:33 | Outpatient (CLI) | payer BC, SELFPAY ==
--- NOTE | 2024-07-16 14:43 | CA_ITS ---
APPROVED REPORT EXAM: Comprehensive 2D, Doppler, and color-flow Echocardiogram Campus Administrative Assistant: JOSE Bernal, RVS Ht: 5 ft 2 in Wt: 169lbs BSA: 1.78 BP: 150/81 mmHg Indications: Murmur, Smoker Echo Enhancing Agent Comments: TDS: Poor acoustic windows throughout exam. 2D Dimensions IVSd 0.87 cm F: 0.6-1.0 LVEF (Visual) 72.80 % PWd 0.79 cm F: 0.6 - 1.0 LA Volume 34.00 mL LVDd 4.93 cm F: 3.9 - 5.3 LA Volume Index 19.10 mL/m2 (M/F) 16-34 LVDs 2.86 cm F: 2.2 - 3.5 Left Atrium 3.12 cm F: 2.7 - 3.8 M-Mode Dimensions LA Diam 3.32 cm (1.9-4.0) EPSs 0.79 cm TAPSE 1.61 (<1.7) LV Diastology E Decel Time 220 (160-240 msec) E/A Ratio 0.71 MED A' 9.60 cm/s LAT A' 9.20 cm/s Aortic Valve KEAGAN Index 0.62 cm2/m2 AoV Peak Jan. 334.0 (50-130 cm/s) AO Peak GR. 44.70 mmHg AO Mean GR. 26.70 (<5 mmHg) AO VTI 72.2 (18-25 cm) KEAGAN (VTI) 1.13 (2.5-4.5 cm2) Mitral Valve MV A Velocity 119.0 (40-130 cm/s) E/A Ratio 0.71 Left Ventricle The left ventricle is normal size. The left ventricular systolic function is normal. The left ventricular ejection fraction is within the normal range. There is increased LV wall thickness. There is normal LV segmental wall motion. Transmitral Doppler flow pattern suggests impaired LV relaxation. LVEF is 60%. Right Ventricle The right ventricle is normal size. The right ventricular systolic function is normal. Atria The left atrium size is normal. The right atrium size is normal. There is no Doppler evidence of interatrial shunt. Aortic Valve The aortic valve is mildly thickened, possibly bicuspid aortic valve. Moderate aortic stenosis is present. Peak velocity 3.2 m/s. Mean AV gradient 25 mmHg. Max AV gradient 42 mmHg. KEAGAN by continuity equation is 1.2 cm2. Trace aortic regurgitation. Mitral Valve The mitral valve is normal in structure. No evidence of mitral valve stenosis. Trace mitral regurgitation. Tricuspid Valve Tricuspid valve is grossly normal in structure and function. Mild tricuspid regurgitation. RVSP is normal. Pulmonic Valve The pulmonary valve is normal in structure. Trace pulmonic regurgitation. Great Vessels The aortic root is normal in size. The ascending aorta is not well-visualized. IVC is normal in size and collapses >50% with inspiration. Pericardium There is no pericardial effusion. Other Information Study Quality: Fair Conclusion Normal biventricular systolic function. Thickened AV, possibly bicuspid aortic valve Moderate (peak velocity 3.2 m/s. Mean AV gradient 25 mmHg. Max AV gradient 42 mmHg. KEAGAN by continuity equation is 1.2 cm2). Mild TR. Electronically signed by : Deb Griggs MD 07/25/2024 23:47:23
== END 2024-07-16 23:59 | disposition home or self-care (01) ==
LOC: RT 14:36
PROVIDERS: PCP Family Medicine; Visit Provider Physician Assistant
DX: I35.1 Nonrheumatic aortic (valve) insufficiency (principal); I36.1 Nonrheumatic tricuspid (valve) insufficiency; R07.89 Other chest pain
CPT/HCPCS: 93306

== ENCOUNTER 2024-08-08 09:56 | Outpatient (CLI) | payer BC, SELFPAY ==
--- NOTE | 2024-08-08 09:56 | MR_ITS ---
APPROVED REPORT Turbo Electric Operator: CLINICAL INDICATION Aortic stenosis, possibly bicuspid AV TECHNIQUE Image Acquisition: Cardiac magnetic resonance (CMR) was performed on Siemens Espree MRI 1.5T scanner. Software platform sequences were performed using the Siemens UsTrendy MR B19 platform. A set of three-plane, low-resolution, large anttm-nf-icgs localizers were initially acquired. Then axial, coronal, sagittal TrueFISP, as well as axial HASTE images, were obtained. These were followed by gated TrueFISP breathold cinematic sequences obtained in the short axis with 8 mm slices and 2 mm gaps, 2-chamber (vertical long axis), 3-chamber, 4-chamber (horizontal long axis). A bolus of contrast was injected intravenously with first-pass sequences obtained in the short axis and four-chamber planes. After approximately 10 minutes, a TI dopeman sequence was performed to determine the optimal TI time. Using the optimized TI time, delayed contrast enhancement segmented inversion???recovery TurboFLASH sequences were obtained in the short axis, 2-chamber, 3-chamber, and 4-chamber projections. 2D-velocity phase mapping was performed. Functional parameters were calculated by offline analysis on an independent workstation ([employer] Imaging Platform, [employer]). Contrast: ProHance??? (Gadoteridol) FINDINGS MORPHOLOGY AND FUNCTION Left ventricle: The left ventricle is normal in size. The indexed left ventricular end-diastolic volume (LVEDVi) is 58 ml/m2 (reference range 57-105 ml/m2 in males, 56-96 ml/m2 in females). Normal left ventricular systolic function is present. There is normal left ventricular wall thickness. There are no regional wall motion abnormalities noted. LVEF is calculated at 66.0% (reference range 57-77%). Right ventricle: The right ventricle is normal in size. The indexed right ventricular end-diastolic volume (RVEDVi) is 54 ml/m2 (reference range 61-121 ml/m2 in males, 48-112 ml/m2 in females). Normal right ventricular systolic function is present. RVEF is calculated at 54.8% (reference range 52-72% in males, 51-71% in females). Atria: The left atrium is normal in size. The maximum indexed left atrial volume is 29 ml/m2 (reference range 26-52 ml/m2 in males, 27-53 ml/m2 in females). The right atrium is normal in size. The maximum indexed right atrial volume is 18 ml/m2 (reference range 18-90 ml/m2). Aorta: The diameter of the aortic annulus is normal, measuring 20 mm (coronal view reference range 21-30 mm in males, 19-27 mm in females). The diameter of the aortic sinus is normal, measuring 28 mm (coronal view reference range 25-42 mm in males, 24-36 mm in females). The diameter of the sinotubular junction is normal, measuring 24 mm (coronal view reference range 18-32 mm in males, 18-28 mm in females). The diameters of the ascending and descending thoracic aorta are normal. Main pulmonary artery: The main pulmonary artery diameter is normal. Pericardium: The pericardial thickness is normal. The pericardial thickness measures 1.4 mm (normal < 4.0 mm). There is no pericardial effusion. VALVES The aortic valve is bicuspid with presence of fusion between the left and the right coronary cusps of the aortic valve. KEAGAN by 2D planimetry on CMR is 1.5 cm2, consistent with moderate aortic stenosis (). Peak velocity 2.3 m/s. Mean AV gradient 5 mmHg, max AV gradient 20 mmHg (note that velocities and gradients are underestimated on CMR compared to TTE). There is transaortic flow acceleration present, consistent with presence of valvular aortic stenosis. Systolic anterior motion of the mitral valve is not visualized. Ratio of pulmonary to systemic flow, Qp:Qs ratio = 1.0 (normal < or = 1.2, hemodynamically significant shunt > 1.5), demonstrating no evidence of hemodynamically significant shunt. TISSUE CHARACTERIZATION Resting Perfusion: Normal myocardial blood flow at rest. No evidence of resting hypoperfusion. Myocardial Fibrosis and/or edema: Normal gadolinium kinetics are present. No evidence of late gadolinium enhancement is noted, consistent with absence of myocardial scarring, infarction, or necrosis. T2-weighted imaging demonstrates no evidence of myocardial edema or inflammation. OTHER No other significant findings are noted. However, this exam is focused on the cardiac structure and function. IMPRESSION Normal LV size with normal LV systolic function. LVEDVi= 58 ml/m2 and LVEF= 66.0%. Normal RV size with normal RV systolic function. RVEDVi= 54 ml/m2 and RVEF= 54.8%. No atrial enlargement. The aortic valve is bicuspid with presence of fusion between the left and the right coronary cusps of the aortic valve. KEAGAN by 2D planimetry on CMR is 1.5 cm2, consistent with classification of moderate aortic stenosis (). No CMR evidence of myocardial scarring, infarction, or necrosis. No evidence of myocardial edema or inflammation. Perfusion analysis demonstrates normal blood flow at rest with no evidence of resting hypoperfusion. Ratio of pulmonary to systemic flow, Qp:Qs ratio = 1.0 (normal < or = 1.2, hemodynamically significant shunt > 1.5), demonstrating no evidence of hemodynamically significant shunt. No evidence of dilation of the ascending/transvere/descending thoracic aorta. No evidence of thoracic aortic coarctation. The above CMR findings demonstrate normal biventricular systolic function, with presence of bicuspid AV and moderate . Serial TTE evaluations and clinical correlation are suggested to evaluate progression and timing of intervention, if needed. Screening of immediate family members for bicuspid AV is also recommended. COMPARISON None CRITICAL RESULT None COMMUNICATION Per this written report The findings of this cardiac MR were reviewed, reported, and signed by Darius Griggs MD (Child Care Director). Conclusion Electronically signed by : Deb Griggs MD 08/09/2024 17:03:04
[2024-08-08] MEDS: SODIUM CHLORIDE 0.9% 50ML BAG 20 ML IV (10:58)
[2024-08-08] MEDS: SODIUM CHLORIDE 0.9% 10ML SYR (RAD ONLY) 10 ML IV (10:58)
[2024-08-08] MEDS: GADOTERIDOL INJ 20ML SYRINGE 15 ML IV (10:59)
== END 2024-08-08 23:59 | disposition home or self-care (01) ==
LOC: RAD 09:56
PROVIDERS: PCP Family Medicine; Visit Provider Physician Assistant
DX: I35.0 Nonrheumatic aortic (valve) stenosis (principal); R93.1 Abnormal findings on diagnostic imaging of heart and coronary circulation; R01.1 Cardiac murmur, unspecified
CPT/HCPCS: 75561; A9576

== ENCOUNTER 2025-01-26 10:04 | Outpatient (CLI) | payer BC, SELFPAY ==
--- OUTSIDE RECORDS SUMMARY | 2025-01-26 10:10 | XMS_ITS | Patient Health Record ---
[facility] [address] [place] [id number] Care Team Providers Care Pourer Buggy Ladle Name Role Phone Maritza Aneesh Primary Care Provider BartolomeKelseyYoana Unavailable [phone] Results Component Value Reference Range Notes Mammogram Reviewed date:05/27/2024 01:22:40 PM Interpretation:Negative, annual f/u Performing Lab: Notes/Report: Negative, annual f/u result Negative, annual f/u Reason For Referral No Information Immunizations Vaccine Route Administration Date Status Comme nts Hepatitis A (adult) IM Intramuscular 06/17/2018 Administer ed Hepatitis A (adult) IM Intramuscular 01/20/2019 Administer ed Problems Problem Type SNOMED Code ICD Code Onset Dates Problem Status W/U Status Risk Notes Problem Sciatica (67415577) Right sided sciatica (M54.31) Active confirmed Problem History of traumatic brain injury (89539507675759) History of concussion (Z87.820) Active confirmed Problem Displacement of cervical intervertebral disc without myelopathy (76328422) Bulging of cervical intervertebral disc (M50.20) Active confirmed Problem Obesity (588236465) Non morbid obesity (E66.9) Active confirmed Plan Of Treatment Pending Test Test Name Order Date CBC 09/09/2020 COVID 19- Outpatient Swab, Rapid Nasal s wab, stand alone test 09/09/2020 Insurance Providers Payer Name Payer Address Payer Phone Subscriber Number Group Number Insured Name Patient Relationship to Insured Coverage Start Date Coverage End Date [employer] [address] [place] [address] [id number] CJJOSÉ MIGUEL Larry Self - patient is the insured Medications Administered Medication Instructions Date of Administration Dosage Notes Depo- Medrol 40 mg/ml 07/04/2016 1.5 mL Medical (General) History Medical History History ICD Code [employer]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 Cristobal wright Surgical History Surgery Date(Month/Year) moles removed for pre-cancerious 2008 Hysterectomy, total December 28, 2016 Hospitalization History Reason Date(Month/Year) [facility] - concussion October 2014 [facility] - hysterectomy December 282016 [facility]-sin[facility] infection 10/02/17
--- NOTE | 2025-01-26 10:15 | CA_ITS ---
APPROVED REPORT EXAM: Comprehensive 2D, Doppler, and color-flow Echocardiogram Marketing Manager Health Communications: Bridget Mtz RDCS Ht: 5 ft 2 in Wt: 167lbs BSA: 1.77 BP: 137/69 mmHg Indications: BICUSPID AV M-Mode Dimensions RVDd 1.38 cm (0.9-2.6) LA Diam 3.51 cm (1.9-4.0) LVDd 3.94 cm (3.5-5.7) LVDs 2.75 cm (3.5-5.7) IVSd 0.91 cm (0.6-1.1) PWd 0.69 cm (0.6-1.1) EF (Teich) 58.10% FS 30.20% EDV (Teich) 67.50 mL ESV (Teich) 28.30 mL LV Diastology E Decel Time 287 (160-240 msec) E/A Ratio 1.0 Aortic Valve KEAGAN Index 0.90 cm2/m2 AoV Peak Jan. 328.0 (50-130 cm/s) AO Peak GR. 42.90 mmHg AO Mean GR. 21.00 (<5 mmHg) AO VTI 71.0 (18-25 cm) KEAGAN (VTI) 1.63 (2.5-4.5 cm2) Mitral Valve MV E Max Jan. 91.0 (40-130 cm/s) MV A Velocity 95.0 (40-130 cm/s) E/A Ratio 0.95 MV PHT 84.0 ms Left Ventricle The left ventricle is normal size. The left ventricular systolic function is normal. The left ventricular ejection fraction is within the normal range. There is increased LV wall thickness. There is normal LV segmental wall motion. Transmitral Doppler flow pattern suggests impaired LV relaxation. LVEF is 55%. Right Ventricle The right ventricle is normal size. The right ventricular systolic function is normal. Atria The left atrium size is normal. The right atrium size is normal. There is no Doppler evidence of interatrial shunt. Aortic Valve Known history of bicuspid aortic valve. The aortic valve leaflets are moderately thickened. Moderate aortic stenosis is present. KEAGAN by continuity equation is 1.5 cm2. Peak velocity 3.3 m/s. Mean AV gradient 23 mmHg. Max AV gradient 45 mmHg. Trace aortic regurgitation. Mitral Valve The mitral valve leaflets are mildly thickened. No evidence of mitral valve stenosis. Trace mitral regurgitation. Tricuspid Valve Tricuspid valve is grossly normal in structure and function. Trace tricuspid regurgitation. There is insufficient TR jet to estimate RVSP. Pulmonic Valve The pulmonary valve is normal in structure. Trace pulmonic regurgitation. Great Vessels The aortic root is normal in size. IVC is normal in size and collapses >50% with inspiration. Pericardium There is no pericardial effusion. Other Information Study Quality: Fair Conclusion Normal biventricular systolic function. Known history of bicuspid aortic valve. Moderate (KEAGAN by continuity equation is 1.5 cm2. Peak velocity 3.3 m/s. Mean AV gradient 23 mmHg. Max AV gradient 45 mmHg). Compared to prior study from 07/16/2024, the transaortic peak velocity and gradients are overall unchanged. Serial TTE evaluations are recommended. Electronically signed by : Deb Griggs MD 01/27/2025 20:08:32
== END 2025-01-26 23:59 | disposition home or self-care (01) ==
LOC: RT 10:05
PROVIDERS: PCP Family Medicine; Visit Provider Physician Assistant
DX: I35.1 Nonrheumatic aortic (valve) insufficiency (principal); Q23.81 Bicuspid aortic valve; R93.1 Abnormal findings on diagnostic imaging of heart and coronary circulation
CPT/HCPCS: 93306